=== PATIENT | female | born 1945 | race Caucasian/White ===

== ENCOUNTER 2019-10-31 00:36 | Outpatient (CLI) | payer OTHER, SELFPAY ==
--- NOTE | 2019-10-31 15:05 | DI.MRI_ITS ---
EXAM: MR LOWER JOINT RT WO CLINICAL HISTORY: FELL 2 WKS AGO, PAIN RT POSTERIOR HEEL WITH WEAKNESS ACHILLES TENDON TECHNIQUE: Multiplanar multisequence MRI was performed without intravenous contrast. COMPARISON: No exams were available for comparison FINDINGS: Study is significantly limited due to patient motion artifact. Multiple repeat sequences were obtain ed. BONES/JOINTS: There is a nondisplaced fracture through the proximal metadiaphyseal junction of the 5t h metatarsal. There is an impacted and comminuted fracture involving the posterior process of the ca lcaneus. The fracture does not involve a joint. No bone lesions identified. The talar dome is jair h. The ankle mortise is maintained. No joint effusion is present. LIGAMENTS: The tibiofibular and calcaneofibular ligaments are intact. The talofibular ligaments are i ntact. The deltoid ligament is intact. The syndesmosis is unremarkable. Sinus tarsi is normal. MUSCULOTENDINOUS STRUCTURES: Achilles tendon: Unremarkable. Plantar fascia: Mild increased signal seen at the plantar fascia at its insertion onto the calcaneus. Small tear versus is fasciitis. Anterior Extensor tendons: Unremarkable. Posterior Tibialis: Unremarkable. Flexor Digitorum longus: Unremarkable. Flexor Hallicus longus: Unremarkable. Peroneus longus: Unremarkable. Peroneus brevis:Unremarkable. SOFT TISSUES: Edema seen in the soft tissues around the hindfoot and ankle. OTHER FINDINGS: None. IMPRESSION: 1. Limited examination due to significant patient motion artifact. 2. Impacted comminuted calcaneal fracture. 3. Nondisplaced fracture of the 5th metatarsal. 4. Plantar fasciitis versus partial tear. 5. No evidence of an Achilles tendon tear. DATA REPOSITORY:
== END 2019-10-31 00:56 ==
PROVIDERS: PCP Internal Medicine; Visit Provider Podiatrist
DX: M79.671 Pain in right foot (principal); M79.89 Other specified soft tissue disorders; S92.001A Unspecified fracture of right calcaneus, initial encounter for closed fracture; S92.354A Nondisplaced fracture of fifth metatarsal bone, right foot, initial encounter for closed fracture
CPT/HCPCS: 73721

== ENCOUNTER → 2023-06-22 10:24 | Outpatient (BNVA) | payer MEDICARE, OTHER, SELFPAY | PROVIDERS: PCP Family Medicine; Referring Provider Family Medicine; Visit Provider Podiatrist | DX: Z91.89 Other specified personal risk factors, not elsewhere classified (principal); G25.81 Restless legs syndrome; E55.9 Vitamin D deficiency, unspecified; F17.200 Nicotine dependence, unspecified, uncomplicated; L60.3 Nail dystrophy; I87.2 Venous insufficiency (chronic) (peripheral); B35.1 Tinea unguium; L60.0 Ingrowing nail; M25.572 Pain in left ankle and joints of left foot; I70.203 Unspecified atherosclerosis of native arteries of extremities, bilateral legs; I73.00 Raynaud's syndrome without gangrene | CPT/HCPCS: 11721; 93922 ==